=== PATIENT | female | born 1940 | race Caucasian/White ===

== ENCOUNTER 2022-06-07 13:24 | Outpatient (RCR) | payer MEDICARE, OTHER, SELFPAY ==
[2022-06-07 14:15] LABS: INR 1.92 (0.91-1.10)
== END 2023-05-30 15:19 | disposition home or self-care (01) ==
LOC: LAB 13:24
DX: I48.21 Permanent atrial fibrillation (principal); Z79.01 Long term (current) use of anticoagulants; Z51.89 Encounter for other specified aftercare
CPT/HCPCS: 36415; 85610

== ENCOUNTER 2022-12-03 13:40 | Outpatient (RCR) | payer MEDICARE, OTHER, SELFPAY ==
[2022-12-03 14:07] LABS: INR 2.23 (0.91-1.10); Prothrombin Time 25.8 Seconds
== END 2023-11-29 16:42 | disposition home or self-care (01) ==
LOC: LAB 13:40
DX: I48.21 Permanent atrial fibrillation (principal); Z79.01 Long term (current) use of anticoagulants
CPT/HCPCS: 36415; 85610

== ENCOUNTER 2023-03-29 15:36 | Outpatient (CLI) | payer MEDICARE, OTHER, SELFPAY | END 2023-03-29 15:37 | disposition home or self-care (01) | PROVIDERS: Visit Provider Internal Medicine Cardiovascular Disease | DX: I48.91 Unspecified atrial fibrillation (principal); Z79.01 Long term (current) use of anticoagulants | CPT/HCPCS: 80048; 80162 ==

== ENCOUNTER 2023-05-01 14:42 | Outpatient (CLI) | payer MEDICARE, OTHER, SELFPAY | END 2023-05-01 14:43 | disposition home or self-care (01) | PROVIDERS: PCP Nurse Practitioner Family; Visit Provider Internal Medicine Cardiovascular Disease | DX: I48.91 Unspecified atrial fibrillation (principal); I51.7 Cardiomegaly | CPT/HCPCS: 93306 ==

== ENCOUNTER 2023-07-26 14:15 | Outpatient (CLI) | payer MEDICARE, OTHER, SELFPAY | END 2023-07-26 14:16 | disposition home or self-care (01) | LOC: NFLDREF 14:17 | PROVIDERS: PCP Nurse Practitioner Family; Visit Provider Nurse Practitioner Family | DX: Z79.01 Long term (current) use of anticoagulants (principal) | CPT/HCPCS: 85610 ==

== ENCOUNTER 2023-10-03 15:41 | Outpatient (CLI) | payer MEDICARE, OTHER, SELFPAY | END 2023-10-03 15:42 | disposition home or self-care (01) | LOC: NFLDREF 15:43 | PROVIDERS: PCP Nurse Practitioner Family; Visit Provider Internal Medicine | DX: I10 Essential (primary) hypertension (principal) | CPT/HCPCS: 80053 ==

== ENCOUNTER 2024-12-04 08:47 | Outpatient (CLI) | payer MEDICARE, SELFPAY | END 2024-12-04 08:48 | disposition home or self-care (01) | PROVIDERS: PCP Nurse Practitioner Family; Visit Provider Nurse Practitioner Family | DX: R73.03 Prediabetes (principal); I10 Essential (primary) hypertension; I48.91 Unspecified atrial fibrillation; Z13.0 Encounter for screening for diseases of the blood and blood-forming organs and certain disorders involving the immune mechanism; Z13.6 Encounter for screening for cardiovascular disorders; Z79.01 Long term (current) use of anticoagulants | CPT/HCPCS: 80053; 80061; 82043; 82570; 82607; 84443; 85025 ==